=== PATIENT | female | born 1960 ===

== ENCOUNTER 2018-03-23 10:34 | Emergency (ER) | payer MEDICARE, OTHER ==
[2018-03-23 10:38] VITALS: BMI 25.7
[2018-03-23] MEDS ORDERED: Sodium Chloride 0.9% 500 ML IV STA (11:09)
--- NOTE | 2018-03-23 11:12 | ED PDOC ---
HPI: Abdomen Time Seen by Provider: 03/23/18 10:39 Chief Complaint (Nursing): Abdominal Pain Chief Complaint (Provider): abdominal pain History Per: Patient History/Exam Limitations: no limitations Onset/Duration Of Symptoms: Days (x3) Current Symptoms Are (Timing): Still Present Location Of Pain/Discomfort: Diffuse Quality Of Discomfort: Sharp Associated Symptoms: Diarrhea (non bloody). denies: Fever, Chills, Nausea, Vomiting, Chest Pain, Urinary Symptoms Additional Complaint(s): Jeni Peng is a 57 year old female, with a past medical history of vertigo and HIV, who presents to the emergency department complaining of a sharp abdominal pain associated with non bloody diarrhea onset for x3 days. Patient states she took Xanax twice [employer] for her pain with improvement. Patient has been compliant with HIV medications. She denies new foods or environmental exposure. She denies any fever, chills, chest pain, shortness of breath, headache, nausea , vomit, numbness or tingling, weakness or urinary symptoms. No further medical complaints. PMD: None provided. Past Medical History Reviewed: Historical Data, Nursing Documentation, Vital Signs Vital Signs: Last Vital Signs Temp 98 F 03/23/18 10:37 Pulse 69 03/23/18 10:37 Resp BP 150/87 03/23/18 10:37 Pulse Ox 98 03/23/18 11:33 - Medical History PMH: Arthritis, Asthma, Depression, HIV Denies: Chronic Kidney Disease Other PMH: vertigo - Family History Family History: States: Unknown Family Hx - Social History Ex-Smoker (has not smoked in the last 12 months): Yes Alcohol: None Drugs: Denies - Immunization History Hx Tetanus Toxoid Vaccination: No - Home Medications Home Medications: Ambulatory Orders Medication Instructions Recorded Albuterol Sulfate [Ventolin Hfa] 2 puff IH Q4H PRN 10/10/15 Emtricitabine/Tenofovir Diso 1 tab PO DAILY 10/10/15 [Truvada 200 MG-300 MG] Multivit,Calc,Mins/Iron/Folic 1 tab PO DAILY 10/10/15 [One-A-Day Women's] Raltegravir Potassium [Isentress] 400 mg PO BID 10/10/15 Sertraline [Zoloft] 200 mg PO HS 10/10/15 Zolpidem Tartrate [Ambien] 10 mg PO HS 10/10/15 clonazePAM [clonAZEPAM] 1 mg PO DAILY 01/24/18 Nitrofurantoin Macrocrystals 100 mg PO BID #10 cap 03/23/18 [Macrobid] - Allergies Allergies/Adverse Reactions: Allergies Allergy/AdvReac Type Severity Reaction Status Date / Time No Known Allergies Allergy Verified 03/23/18 10:38 Review of Systems ROS Statement: Except As Marked, All Systems Reviewed And Found Negative Constitutional: Negative for: Fever, Chills Cardiovascular: Negative for: Chest Pain Respiratory: Negative for: Shortness of Breath Gastrointestinal: Positive for: Abdominal Pain, Diarrhea (non bloody). Negative for: Nausea, Vomiting Physical Exam - Reviewed Nursing Documentation Reviewed: Yes Vital Signs Reviewed: Yes - Physical Exam Appears: Positive for: Non-toxic, No Acute Distress Head Exam: Positive for: ATRAUMATIC, NORMOCEPHALIC Skin: Positive for: Normal Color, Warm, Dry Eye Exam: Positive for: Normal appearance, EOMI, PERRL Neck: Positive for: Painless ROM, Supple Cardiovascular/Chest: Positive for: Regular Rate, Rhythm. Negative for: Murmur Respiratory: Positive for: Normal Breath Sounds. Negative for: Respiratory Distress Gastrointestinal/Abdominal: Positive for: Tenderness (mild upper quadrant tenderness. No tenderness to lower quadrants). Negative for: Guarding, Rebound , Other (flank tenderness) Back: Negative for: L CVA Tenderness, R CVA Tenderness, Vertebral Tenderness Extremity: Positive for: Normal ROM (upper and lower extremties). Negative for : Tenderness, Deformity, Swelling Neurologic/Psych: Positive for: Alert, Oriented. Negative for: Motor/Sensory Deficits - Laboratory Results Result Diagrams: 03/23/18 11:55 03/23/18 11:55 Interpretation Of Abnormal: nit pos - ECG O2 Sat by Pulse Oximetry: 98 (RA) Pulse Ox Interpretation: Normal - Progress ED Course And Treament: 1417: Stable. AAOx3. Pain free. Tolerated PO. FU with pcp. Medical Decision Making Medical Decision Making: Time: 10:39 Initial Impression: abdominal pain and diarrhea Initial Plan: --CMP --Lipase --Urine dip --CBC w/ differential --Bentyl 10 mg PO --Sodium Chloride 500 ml IV 100 mls/hr --Pepcid 20 mg IVP --Toradol 15 mg IVP --Reevaluation ----- Scribe Attestation: Documented by Torres Luna, acting as a scribe for Santana Santizo MD. Provider Scribe Attestation: All medical record entries made by the Scribe were at my direction and personally dictated by me. I have reviewed the chart and agree that the record accurately reflects my personal performance of the history, physical exam, medical decision making, and the department course for this patient. I have also personally directed, reviewed, and agree with the discharge instructions and disposition. Disposition - Clinical Impression Clinical Impression: Abdominal pain, UTI (urinary tract infection), Diarrhea - Patient ED Disposition Is Patient to be Admitted: No Counseled Patient/Family Regarding: Studies Performed, Diagnosis, Need For Followup, Rx Given - Disposition Referrals: [facility] [Outside] - 03/24/18 Disposition: Routine/Home Disposition Time: 14:19 Condition: STABLE Additional Instructions: Return if not better in 3 days. Prescriptions: Nitrofurantoin Macrocrystals [Macrobid] 100 mg PO BID #10 cap Instructions: Urinary Tract Infections in Adults, Acute Abdomen (Belly Pain), Adult (DC), Diarrhea in Adolescents and Adults
[2018-03-23] MEDS ORDERED: Famotidine 20mg/50ml 20 MG/50 ML BAG IVPB ONE (11:56)
[2018-03-23 12:04] LABS: BASO # 0.1 K/uL (0.0-0.2); BASO % 1.4 % (0.0-2.0); EOS # 0.1 K/uL (0.0-0.7); EOS % 0.7 % (0.0-4.0); HEMOGLOBIN 14.8 g/dL (12.0-16.0); LYMPH % 23.8 % (20.0-40.0); MEAN CELL VOLUME 91.5 fl (81.0-99.0); MEAN CORPUSCULAR HEMOGLOBIN 29.9 pg (27.0-31.0); MEAN CORPUSCULAR HGB CONC 32.7 g/dL (33.0-37.0); MEAN PLATELET VOLUME 9.2 fl (7.2-11.7); MONO # 0.7 K/uL (0.0-0.8); NEUT # 5.6 K/uL (1.8-7.0); NEUT % 66.1 % (50.0-75.0); RBC 4.95 Mil/uL (3.80-5.20); WHITE BLOOD COUNT 8.5 K/uL (4.8-10.8)
[2018-03-23 12:15] LABS: ALB/GLOB RATIO 1.1 (1.0-2.1); ALBUMIN 4.4 g/dL (3.5-5.0); ALT/SGPT 42 U/L (9-52); AST/SGOT 29 U/L (14-36); BLOOD UREA NITROGEN 13 mg/dl (7-17); CALCIUM 9.4 mg/dL (8.4-10.2); GFR AFRICAN-AMERICAN > 60; GFR NON-AFRICAN AMERICAN > 60; LIPASE 82 U/L (23-300)
[2018-03-23 13:30] LABS: SQUAMOUS EPITHIAL 2 /hpf (0-5); URINE BACTERIA RARE (<OCC); URINE BILIRUBIN NEGATIVE (NEGATIVE); URINE BLOOD NEGATIVE (NEGATIVE); URINE CLARITY CLOUDY (Clear); URINE COLOR YELLOW (YELLOW); URINE GLUCOSE (UA) NEG (Normal); URINE LEUKOCYTE ESTERASE TRACE Leu/uL (Negative); URINE PROTEIN NEGATIVE (NEGATIVE); URINE UROBILINOGEN 0.2-1.0 mg/dL (0.2-1.0)
[2018-03-23 14:33] VITALS: BP 135/82; PULSE 74; RESP 16; TEMP 98.7; O2SAT 99
== END 2018-03-23 14:33 | disposition home or self-care (01) ==
LOC: H.ER 10:34
DX: N39.0 Urinary tract infection, site not specified (principal); R19.7 Diarrhea, unspecified; F32.9 Major depressive disorder, single episode, unspecified; J45.909 Unspecified asthma, uncomplicated
CPT/HCPCS: 80053; 81003; 83690; 85025; 96374; 96375; 99283; J1885; J7040

== ENCOUNTER 2018-06-12 10:57 | Emergency (ER) | payer MEDICARE, OTHER ==
[2018-06-12 10:57] VITALS: BMI 25.7
--- NOTE | 2018-06-12 12:28 | ED PDOC ---
HPI: Abdomen Time Seen by Provider: 06/12/18 11:05 Chief Complaint (Nursing): Abdominal Pain Chief Complaint (Provider): abdominal pain History Per: Patient History/Exam Limitations: no limitations Onset/Duration Of Symptoms: Days (x1) Current Symptoms Are (Timing): Still Present Context: Food Location Of Pain/Discomfort: Diffuse Associated Symptoms: Diarrhea. denies: Fever, Chills, Nausea, Vomiting Additional Complaint(s): Jeni Peng is a 57 year old female, with a past medical history of HIV and gastric ulcers, who presents to the emergency department complaining of abdominal pain associated with diarrhea ongoing since yesterday. Patient states symptoms started after she ate [place] food yesterday. She denies any fever, chills, nausea or vomit. No further medical complaints. PMD: None provided. Past Medical History Reviewed: Historical Data, Nursing Documentation, Vital Signs Vital Signs: Last Vital Signs Temp 98.7 F 06/12/18 17:35 Pulse 98 H 06/12/18 17:35 Resp 18 06/12/18 17:35 BP 142/97 H 06/12/18 17:35 Pulse Ox 99 06/12/18 17:35 - Medical History PMH: Anxiety, Arthritis, Asthma (NO MED AT PRESENT), Depression, Gastrointestinal Ulcer, HIV, HTN Denies: Chronic Kidney Disease - Surgical History Surgical History: Endoscopy - Family History Family History: States: Unknown Family Hx - Immunization History Hx Tetanus Toxoid Vaccination: No - Home Medications Home Medications: Ambulatory Orders Medication Instructions Recorded Emtricitabine/Tenofovir Diso 1 tab PO DAILY 10/10/15 [Truvada 200 MG-300 MG] Multivit,Calc,Mins/Iron/Folic 1 tab PO DAILY 10/10/15 [One-A-Day Women's] Raltegravir Potassium [Isentress] 400 mg PO BID 10/10/15 Sertraline [Zoloft] 200 mg PO HS 10/10/15 clonazePAM [clonAZEPAM] 1 mg PO DAILY 01/24/18 Enalapril Maleate [Vasotec] 5 mg PO DAILY 05/10/18 Meclizine HCl 12.5 mg PO DAILY PRN 05/10/18 hydrOXYzine HCl [Atarax] 10 mg PO DAILY PRN 05/10/18 - Allergies Allergies/Adverse Reactions: Allergies Allergy/AdvReac Type Severity Reaction Status Date / Time No Known Allergies Allergy Verified 06/12/18 11:12 Review of Systems ROS Statement: Except As Marked, All Systems Reviewed And Found Negative Constitutional: Negative for: Fever, Chills Gastrointestinal: Positive for: Abdominal Pain, Diarrhea. Negative for: Nausea , Vomiting Physical Exam - Reviewed Nursing Documentation Reviewed: Yes Vital Signs Reviewed: Yes - Physical Exam Appears: Positive for: No Acute Distress Head Exam: Positive for: ATRAUMATIC, NORMOCEPHALIC Skin: Positive for: Normal Color, Warm, Dry Eye Exam: Positive for: Normal appearance Neck: Positive for: Painless ROM Cardiovascular/Chest: Positive for: Regular Rate, Rhythm. Negative for: Murmur Respiratory: Positive for: Normal Breath Sounds. Negative for: Respiratory Distress Gastrointestinal/Abdominal: Positive for: Tenderness (mild diffused). Negative for: Guarding, Rebound Back: Positive for: Normal Inspection. Negative for: L CVA Tenderness, R CVA Tenderness Extremity: Positive for: Normal ROM (upper and lower extremities). Negative for : Deformity, Swelling Neurologic/Psych: Positive for: Alert, Oriented - Laboratory Results Result Diagrams: 06/12/18 12:39 06/12/18 12:39 - ECG O2 Sat by Pulse Oximetry: 98 (RA) Pulse Ox Interpretation: Normal Medical Decision Making Medical Decision Making: Time: 11:50 Initial Impression: abdominal pain Initial Plan: --CMP --Lipase --CBC w/ differential --Reevaluation 14:10 -Ordered Abd & Pelvis w/o PO or IV Contrast [CT] 15:12 -labs showed no clinical significant abnormalities. 16:22 Abdomen/Pelvis CT FINDINGS: Study is compromised by lack oral intravenous contrast agents. LOWER THORAX: There is a tiny hiatal hernia appreciate with lung bases otherwise unremarkable. LIVER: Unremarkable. No gross lesion or ductal dilatation. GALLBLADDER AND BILE DUCTS: Patient appears to status post prior cholecystectomy with likely related dilatation of the proximal CBD which measures 10 mm with the distal portion measuring 5 mm. No radiodense choledocholithiasis appreciated. The distal portion of a ventriculoperitoneal shunt appears to be entry into the right lower quadrant abdomen terminating at the medial gallbladder fossa region. PANCREAS: Unremarkable. No gross lesion or ductal dilatation. SPLEEN: Unremarkable. ADRENALS: Unremarkable. No mass. KIDNEYS AND URETERS: A punctate intrarenal calculus is identified at the lower pole right kidney. No obstructive uropathy bilaterally. A parenchymal calcifications seen at the lower pole left kidney not felt to be in a lower pole left calyx. VASCULATURE: Unremarkable. No aortic aneurysm. BOWEL: Evaluation of the gastrointestinal tract is limited due to the lack of oral contrast administration. Stomach is collapsed not well evaluated. No perienteric or pericolic reaction is evident. Rare left colonic diverticular appreciated which do appear nonacute. APPENDIX: Clips in the cecal base suggesting prior appendectomy with the appendix not identified. Clinically correlate further. PERITONEUM: Unremarkable. No free fluid. No free air. LYMPH NODES: Unremarkable. No enlarged lymph nodes. BLADDER: Unremarkable. REPRODUCTIVE: Unremarkable. BONES: No acute fracture. OTHER FINDINGS: None. IMPRESSION: 1. No definite acute abdominal or pelvic findings are identified on standard unenhanced abdomen pelvis CT, a low sensitivity examination by definition. 2. Nonobstructing intrarenal calculus lower pole right kidney with punctate parenchymal calculus identified at the lower pole left kidney. 3. Prior cholecystectomy suggested. Clinically correlate. Patient also appears to be status post prior right-sided ventriculoperitoneal shunt catheter deployment with tip terminating at the right upper quadrant abdomen. No ascites grossly evident. 4. Where left colonic diverticula with no acute bowel findings appreciable grossly. 16:50 -Upon provider reevaluation patient is feeling better and wants to leave. she has been resting comfortably throughout and is aware of CT results. pt tolerated po in the ED. She is medically stable, and requires no further treatment in the ED at this time. Patient will be discharged home. Counseling was provided and all questions were answered regarding diagnosis and need for follow up. There is agreement to discharge plan. Return if symptoms persist or worsen. ----- Scribe Attestation: Documented by Torres Luna, acting as a scribe for Delisa Varela MD. Provider Scribe Attestation: All medical record entries made by the Scribe were at my direction and personally dictated by me. I have reviewed the chart and agree that the record accurately reflects my personal performance of the history, physical exam, medical decision making, and the department course for this patient. I have also personally directed, reviewed, and agree with the discharge instructions and disposition. Disposition - Clinical Impression Clinical Impression: Diarrhea - Patient ED Disposition Is Patient to be Admitted: No Counseled Patient/Family Regarding: Studies Performed, Diagnosis, Need For Followup - Disposition Disposition: Routine/Home Disposition Time: 16:05 Condition: IMPROVED Additional Instructions: follow up with your primary doctor in 1-2 days return to the ED with any worsening or concerning symptoms Instructions: Diarrhea in Adolescents and Adults Forms: [facility] (Upper Sorbian)
[2018-06-12] MEDS ORDERED: Sodium Chloride 0.9% 1,000 ML IV STA (12:30)
[2018-06-12 12:46] LABS: BASO % 0.1 % (0.0-2.0); EOS # 0.1 K/uL (0.0-0.7); HEMOGLOBIN 14.8 g/dL (12.0-16.0); LYMPH # 2.3 K/uL (1.0-4.3); LYMPH % 26.1 % (20.0-40.0); MEAN CELL VOLUME 92.2 fl (81.0-99.0); MEAN CORPUSCULAR HEMOGLOBIN 30.5 pg (27.0-31.0); MEAN CORPUSCULAR HGB CONC 33.1 g/dL (33.0-37.0); MEAN PLATELET VOLUME 8.7 fl (7.2-11.7); MONO # 0.9 K/uL (0.0-0.8); MONO % 9.8 % (0.0-10.0); NEUT # 5.6 K/uL (1.8-7.0); NRBC % 0.1 % (0.0-0.0); RBC 4.86 Mil/uL (3.80-5.20); RED CELL DISTRIBUTION WIDTH 13.9 % (11.5-14.5)
[2018-06-12 13:00] LABS: ALB/GLOB RATIO 1.1 (1.0-2.1); ALBUMIN 4.2 g/dL (3.5-5.0); ALT/SGPT 33 U/L (9-52); AST/SGOT 31 U/L (14-36); BLOOD UREA NITROGEN 14 mg/dl (7-17); CALCIUM 9.3 mg/dL (8.4-10.2); GFR NON-AFRICAN AMERICAN > 60; LIPASE 85 U/L (23-300)
--- NOTE | 2018-06-12 16:24 | CT ---
Date of service: 06/12/2018 PROCEDURE: CT Abdomen and Pelvis without intravenous contrast HISTORY: abd pain COMPARISON: Noncontrast abdomen pelvis CT 12/25/2009 as well as chest radiographs 05/13/2011. TECHNIQUE: Helical CT of the abdomen and pelvis was performed without oral or intravenous contrast as per referring physician request. Coronal and sagittal reformats were generated. Contrast dose: None Radiation dose: Total exam DLP = 560.05 mGy-cm. This CT exam was performed using one or more of the following dose reduction techniques: Automated exposure control, adjustment of the mA and/or kV according to patient size, and/or use of iterative reconstruction technique. FINDINGS: Study is compromised by lack oral intravenous contrast agents. LOWER THORAX: There is a tiny hiatal hernia appreciate with lung bases otherwise unremarkable. LIVER: Unremarkable. No gross lesion or ductal dilatation. GALLBLADDER AND BILE DUCTS: Patient appears to status post prior cholecystectomy with likely related dilatation of the proximal CBD which measures 10 mm with the distal portion measuring 5 mm. No radiodense choledocholithiasis appreciated. The distal portion of a ventriculoperitoneal shunt appears to be entry into the right lower quadrant abdomen terminating at the medial gallbladder fossa region. PANCREAS: Unremarkable. No gross lesion or ductal dilatation. SPLEEN: Unremarkable. ADRENALS: Unremarkable. No mass. KIDNEYS AND URETERS: A punctate intrarenal calculus is identified at the lower pole right kidney. No obstructive uropathy bilaterally. A parenchymal calcifications seen at the lower pole left kidney not felt to be in a lower pole left calyx. VASCULATURE: Unremarkable. No aortic aneurysm. BOWEL: Evaluation of the gastrointestinal tract is limited due to the lack of oral contrast administration. Stomach is collapsed not well evaluated. No perienteric or pericolic reaction is evident. Rare left colonic diverticular appreciated which do appear nonacute. APPENDIX: Clips in the cecal base suggesting prior appendectomy with the appendix not identified. Clinically correlate further. PERITONEUM: Unremarkable. No free fluid. No free air. LYMPH NODES: Unremarkable. No enlarged lymph nodes. BLADDER: Unremarkable. REPRODUCTIVE: Unremarkable. BONES: No acute fracture. OTHER FINDINGS: None. IMPRESSION: 1. No definite acute abdominal or pelvic findings are identified on standard unenhanced abdomen pelvis CT, a low sensitivity examination by definition. 2. Nonobstructing intrarenal calculus lower pole right kidney with punctate parenchymal calculus identified at the lower pole left kidney. 3. Prior cholecystectomy suggested. Clinically correlate. Patient also appears to be status post prior right-sided ventriculoperitoneal shunt catheter deployment with tip terminating at the right upper quadrant abdomen. No ascites grossly evident. 4. Where left colonic diverticula with no acute bowel findings appreciable grossly.
[2018-06-12 19:41] VITALS: BP 142/97; PULSE 98; RESP 18; TEMP 98.7
[2018-06-16 00:27] VITALS: O2SAT 98
== END 2018-06-12 17:35 | disposition home or self-care (01) ==
LOC: H.ER 10:57
DX: N20.0 Calculus of kidney (principal); Z98.2 Presence of cerebrospinal fluid drainage device; J45.909 Unspecified asthma, uncomplicated
CPT/HCPCS: 74176; 80053; 83690; 85025; 96361; 96374; 96375; 99285; C9113; J2270; J2405; J7030

== ENCOUNTER 2018-08-03 05:09 | Emergency (ER) | payer MEDICARE, OTHER ==
[2018-08-03 05:10] VITALS: BMI 25.7
[2018-08-03 05:19] VITALS: TEMP 98.1; O2SAT 97
[2018-08-03] MEDS ORDERED: Iohexol 240 (50 ml) PO ONE (05:34)
[2018-08-03] MEDS ORDERED: Iohexol 240 (50 ml) ONE (05:42)
--- NOTE | 2018-08-03 06:17 | ED PDOC ---
HPI: Abdomen Time Seen by Provider: 08/03/18 05:27 Chief Complaint (Nursing): Abdominal Pain Chief Complaint (Provider): Abdominal Pain History Per: Patient History/Exam Limitations: no limitations Onset/Duration Of Symptoms: Days (x3) Location Of Pain/Discomfort: Diffuse Quality Of Discomfort: Cramping Associated Symptoms: Diarrhea. denies: Fever, Nausea, Vomiting Additional Complaint(s): 57 y/o female with history of HIV and [employer] shunt presents to the ED complaining of abdominal pain with associated headache onset x3 days ago. Patient reports the pain is a cramping sensation and it feels like she has her period. She also reports feeling bloated and like her stomach is sticking out. Patient reports she has had 2 episodes of watery diarrhea every day for the past x3 days. She also has a throbbing headache with associated blurry vision. She denies nausea, vomiting, fever, neck stiffness or a thunderclap quality to the headache. Past Medical History Reviewed: Historical Data, Nursing Documentation, Vital Signs Vital Signs: Last Vital Signs Temp 98.1 F 08/03/18 05:16 Pulse 90 08/03/18 05:16 Resp 18 08/03/18 05:16 BP 145/62 08/03/18 05:16 Pulse Ox 97 08/03/18 05:16 - Medical History PMH: Anxiety, Arthritis, Asthma (NO MED AT PRESENT), Depression, Gastrointestinal Ulcer, HIV, HTN Denies: Chronic Kidney Disease - Surgical History Surgical History: Endoscopy - Family History Family History: States: Unknown Family Hx - Immunization History Hx Tetanus Toxoid Vaccination: No - Home Medications Home Medications: Ambulatory Orders Medication Instructions Recorded Emtricitabine/Tenofovir Diso 1 tab PO DAILY 10/10/15 [Truvada 200 MG-300 MG] Multivit,Calc,Mins/Iron/Folic 1 tab PO DAILY 10/10/15 [One-A-Day Women's] Raltegravir Potassium [Isentress] 400 mg PO BID 10/10/15 Sertraline [Zoloft] 200 mg PO HS 10/10/15 clonazePAM [clonAZEPAM] 1 mg PO DAILY 01/24/18 Enalapril Maleate [Vasotec] 5 mg PO DAILY 05/10/18 Meclizine HCl 12.5 mg PO DAILY PRN 05/10/18 hydrOXYzine HCl [Atarax] 10 mg PO DAILY PRN 05/10/18 - Allergies Allergies/Adverse Reactions: Allergies Allergy/AdvReac Type Severity Reaction Status Date / Time No Known Allergies Allergy Verified 08/03/18 05:16 Review of Systems ROS Statement: Except As Marked, All Systems Reviewed And Found Negative Constitutional: Negative for: Fever Eyes: Positive for: Vision Change (blurry) Gastrointestinal: Positive for: Abdominal Pain, Diarrhea. Negative for: Nausea, Vomiting Neurological: Positive for: Headache Physical Exam - Reviewed Nursing Documentation Reviewed: Yes Vital Signs Reviewed: Yes - Physical Exam Appears: Positive for: Well, Non-toxic, No Acute Distress Head Exam: Positive for: ATRAUMATIC, NORMOCEPHALIC Skin: Positive for: Normal Color, Warm, DRY Eye Exam: Positive for: EOMI, Normal appearance, PERRL ENT: Positive for: Normal ENT Inspection Neck: Positive for: Normal, Painless ROM, Supple Cardiovascular/Chest: Positive for: Regular Rate, Rhythm. Negative for: Murmur Respiratory: Positive for: Normal Breath Sounds. Negative for: Respiratory Distress Gastrointestinal/Abdominal: Positive for: Soft, Tenderness (diffuse tenderness to palpation). Negative for: Guarding, Rebound Extremity: Positive for: Normal ROM. Negative for: Pedal Edema, Deformity Neurologic/Psych: Positive for: Alert, Oriented. Negative for: Motor/Sensory Deficits - Laboratory Results Result Diagrams: 08/03/18 06:15 08/03/18 06:15 - ECG O2 Sat by Pulse Oximetry: 97 (RA) Pulse Ox Interpretation: Normal Medical Decision Making Medical Decision Making: Time: 05:35 A/P: history of HIV presenting with abdominal pain and diarrhea; differential includes colitis vs. enteritis vs. diverticulitis vs. pancreatitis. Headache is likely migraine or tension. Need CT to r/o other acute pathology. * CT Abd/Pelvis * CT Head * BMP * LIpase * Liver profile * CBC * Omnipaque * Toradol * UA Time: 07:00 Patient care signed out to Dr. Varela pending work up. Scribe Attestation: Documented by Armando Madrigal acting as a scribe for Cliff Isbell MD. Provider Scribe Attestation: All medical record entries made by the Scribe were at my direction and personally dictated by me. I have reviewed the chart and agree that the record accurately reflects my personal performance of the history, physical exam, medical decision making, and the department course for this patient. I have also personally directed, reviewed, and agree with the discharge instructions and disposition. Disposition - Clinical Impression Clinical Impression: Abdominal pain - Disposition Referrals: Jacquelyn Neil MD [Provisional Staff] - Disposition: Transfer of Care Disposition Time: 07:00 Condition: STABLE Forms: [employer] (Faroese) Patient Signed Over To: Delisa Varela Handoff Comments: pending workup and re-eval
[2018-08-03 06:20] LABS: HEMOGLOBIN 16.1 g/dL (12.0-16.0); MEAN CORPUSCULAR HEMOGLOBIN 30.1 pg (27.0-31.0); MEAN CORPUSCULAR HGB CONC 32.4 g/dL (33.0-37.0); RBC 5.36 Mil/uL (3.80-5.20); RED CELL DISTRIBUTION WIDTH 13.7 % (11.5-14.5); WHITE BLOOD COUNT 9.8 K/uL (4.8-10.8)
[2018-08-03 06:30] LABS: ALB/GLOB RATIO 1.2 (1.0-2.1); ALBUMIN 4.8 g/dL (3.5-5.0); ALT/SGPT 33 U/L (9-52); AST/SGOT 35 U/L (14-36); BILIRUBIN,DIRECT 0.3 mg/ml (0.0-0.4); BLOOD UREA NITROGEN 14 mg/dl (7-17); CALCIUM 9.7 mg/dL (8.4-10.2); GFR NON-AFRICAN AMERICAN > 60; LIPASE 109 U/L (23-300)
[2018-08-03 06:46] LABS: SQUAMOUS EPITHIAL 11 /hpf (0-5); URINE BACTERIA MOD (<OCC); URINE BILIRUBIN NEGATIVE (NEGATIVE); URINE BLOOD MODERATE (NEGATIVE); URINE CALCIUM OXALATE CRYSTALS MANY /hpf (<OCC); URINE CLARITY CLOUDY (Clear); URINE COLOR YELLOW (YELLOW); URINE GLUCOSE (UA) NEG (Normal); URINE LEUKOCYTE ESTERASE MOD Leu/uL (Negative); URINE PROTEIN NEGATIVE (NEGATIVE); URINE UROBILINOGEN 0.2-1.0 mg/dL (0.2-1.0)
--- NOTE | 2018-08-03 07:25 | ED PDOC ---
- Laboratory Results Result Diagrams: 08/03/18 06:15 08/03/18 06:15 - ECG O2 Sat by Pulse Oximetry: 97 (RA) Pulse Ox Interpretation: Normal Medical Decision Making Medical Decision Makin:00 --Patient endorsed to this provider by Dr. Isbell pending CTs, workup and reevaluation. 08:[address] FINDINGS: HEMORRHAGE: No intracranial hemorrhage. BRAIN: No mass effect or edema. Mild periventricular white matter lucency consistent with chronic microvascular ischemic change. Patchy deep/subcortical white matter ischemic change. Unchanged from prior examination. No evidence of acute infarct. VENTRICLES: No hydrocephalus. Right frontal ventriculostomy catheter unchanged in position, traversing the midline to the left. CALVARIUM: Unremarkable. PARANASAL SINUSES: Unremarkable as visualized. No significant inflammatory changes. MASTOID AIR CELLS: Unremarkable as visualized. No inflammatory changes. OTHER FINDINGS: None. IMPRESSION: No ventriculomegaly. Right frontal ventriculostomy shunt catheter unchanged. No intracranial mass, hemorrhage or evidence of acute infarct. Stable mild chr onic white matter ischemic change. 10:40 Abd & Pelvis CT FINDINGS: LOWER THORAX: Unremarkable. LIVER: Unremarkable. No gross lesion or ductal dilatation. GALLBLADDER AND BILE DUCTS: Status post cholecystectomy. Surgical drain in gallbladder fossa extends through mid right anterior abdominal wall. Dilatation of common bile duct up to approximately 9 mm. Previous examination, the common bile duct measured approximately 10 mm. No associated intrahepatic biliary dilatation. PANCREAS: Unremarkable. No gross lesion or ductal dilatation. SPLEEN: Unremarkable. ADRENALS: Unremarkable. No mass. KIDNEYS AND URETERS: Nonobstructing 2 mm right lower pole renal calculus. No hydronephrosis. Nonspecific small rounded low-density renal masses bilaterally. Upper pole right kidney 7 mm. Mid right kidney 8 mm and 9 mm. Mid left kidney, 8 mm. Likely cysts. No hydronephrosis. VASCULATURE: Unremarkable. No aortic aneurysm. No aortic atherosclerotic calcification or mural plaque present. BOWEL: Unremarkable. No obstruction. No gross mural thickening. APPENDIX: Status post appendectomy PERITONEUM: Unremarkable. No free fluid. No free air. LYMPH NODES: No significantly enlarged lymph nodes. Shotty subcentimeter lymph nodes are` seen medial to the cecum and ascending colon and scattered throughout the small bowel mesenteric. BLADDER: Unremarkable. REPRODUCTIVE: Normal uterus BONES: No acute fracture OTHER FINDINGS: None. IMPRESSION: Shotty subcentimeter lymph nodes medial to the cecum/ascending colon and thr oughout the small bowel mesentery. Nonspecific. Status post cholecystectomy with drainage catheter extending to right upper quadrant. Mild dilatation of common bile duct without associated intrahepatic biliary dilatation. Correlate with laboratory evaluation for biliary obstruction. Status post appendectomy. 11:04 Patient is aware of results. she is tolerating po and feels improved.. pt is stable and will be discharged with a prescription for Macrobid due to UTI. Return precautions provided. Follow up with PMD in 1-2 days (clinic). Scribe Attestation: Documented by Karen Brownlee acting as a scribe for Delisa Varela MD Provider Scribe Attestation: All medical record entries made by the Scribe were at my direction and personally dictated by me. I have reviewed the chart and agree that the record accurately reflects my personal performance of the history, physical exam, medical decision making, and the department course for this patient. I have also personally directed, reviewed, and agree with the discharge instructions and disposition. Disposition - Clinical Impression Clinical Impression: Abdominal pain, UTI (urinary tract infection) - POA Present On Arrival: None - Disposition Referrals: Jacquelyn Neil MD [Provisional Staff] - Disposition: Routine/Home Disposition Time: 11:05 Condition: IMPROVED Additional Instructions: follow up with Dr Neil in 1-2 days for reevaluation return to the ED with any worsening or concerning symptoms Prescriptions: Nitrofurantoin Macrocrystals [Macrobid] 100 mg PO BID #14 cap Instructions: Urinary Tract Infection, Adult (DC) Forms: Jybe (Maltese), Jybe (Azeri) Print Language: GREEK
--- NOTE | 2018-08-03 08:35 | CT ---
Date of service: 08/03/2018 PROCEDURE: CT HEAD WITHOUT CONTRAST. 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 Radiation dose: Total exam DLP = 718.65 mGy-cm. This CT exam was performed using one or more of the following dose reduction techniques: Automated exposure control, adjustment of the mA and/or kV according to patient size, and/or use of iterative reconstruction technique. FINDINGS: HEMORRHAGE: No intracranial hemorrhage. BRAIN: No mass effect or edema. Mild periventricular white matter lucency consistent with chronic microvascular ischemic change. Patchy deep/subcortical white matter ischemic change. Unchanged from prior examination. No evidence of acute infarct. VENTRICLES: No hydrocephalus. Right frontal ventriculostomy catheter unchanged in position, traversing the midline to the left. CALVARIUM: Unremarkable. PARANASAL SINUSES: Unremarkable as visualized. No significant inflammatory changes. MASTOID AIR CELLS: Unremarkable as visualized. No inflammatory changes. OTHER FINDINGS: None. IMPRESSION: No ventriculomegaly. Right frontal ventriculostomy shunt catheter unchanged. No intracranial mass, hemorrhage or evidence of acute infarct. Stable mild chronic white matter ischemic change. The preliminary findings for this examination were reported by [facility] at 6:40 a.m. on 08/03/2018. There is concurrence of this report with the preliminary findings.
[2018-08-03] MEDS ORDERED: Iohexol 300 100 ML IJ ONE (08:41)
[2018-08-03] MEDS ORDERED: Sodium Chloride 0.9% 50 ML IV ONE (08:42)
--- NOTE | 2018-08-03 10:43 | CT ---
Date of service: 08/03/2018 PROCEDURE: CT Abdomen and Pelvis with contrast HISTORY: hx of HIV, abd pain, diarrhea COMPARISON: 06/12/2018 TECHNIQUE: Contrast dose: 95 cc Omnipaque 300 Radiation dose: Total exam DLP = 495.63 mGy-cm. This CT exam was performed using one or more of the following dose reduction techniques: Automated exposure control, adjustment of the mA and/or kV according to patient size, and/or use of iterative reconstruction technique. FINDINGS: LOWER THORAX: Unremarkable. LIVER: Unremarkable. No gross lesion or ductal dilatation. GALLBLADDER AND BILE DUCTS: Status post cholecystectomy. Surgical drain in gallbladder fossa extends through mid right anterior abdominal wall. Dilatation of common bile duct up to approximately 9 mm. Previous examination, the common bile duct measured approximately 10 mm. No associated intrahepatic biliary dilatation. PANCREAS: Unremarkable. No gross lesion or ductal dilatation. SPLEEN: Unremarkable. ADRENALS: Unremarkable. No mass. KIDNEYS AND URETERS: Nonobstructing 2 mm right lower pole renal calculus. No hydronephrosis. Nonspecific small rounded low-density renal masses bilaterally. Upper pole right kidney 7 mm. Mid right kidney 8 mm and 9 mm. Mid left kidney, 8 mm. Likely cysts. No hydronephrosis. VASCULATURE: Unremarkable. No aortic aneurysm. No aortic atherosclerotic calcification or mural plaque present. BOWEL: Unremarkable. No obstruction. No gross mural thickening. APPENDIX: Status post appendectomy PERITONEUM: Unremarkable. No free fluid. No free air. LYMPH NODES: No significantly enlarged lymph nodes. Shotty subcentimeter lymph nodes are` seen medial to the cecum and ascending colon and scattered throughout the small bowel mesenteric. BLADDER: Unremarkable. REPRODUCTIVE: Normal uterus BONES: No acute fracture OTHER FINDINGS: None. IMPRESSION: Shotty subcentimeter lymph nodes medial to the cecum/ascending colon and throughout the small bowel mesentery. Nonspecific. Status post cholecystectomy with drainage catheter extending to right upper quadrant. Mild dilatation of common bile duct without associated intrahepatic biliary dilatation. Correlate with laboratory evaluation for biliary obstruction. Status post appendectomy.
[2018-08-03 12:26] VITALS: PULSE 88; RESP 16
[2018-08-03 12:27] VITALS: BP 142/50
== END 2018-08-03 11:35 | disposition home or self-care (01) ==
LOC: H.ER 05:09
DX: N39.0 Urinary tract infection, site not specified (principal); R10.9 Unspecified abdominal pain
CPT/HCPCS: 70450; 74177; 80048; 80076; 81003; 83690; 85027; 96374; 99284; J1885; Q9966; Q9967